=== PATIENT | male | born 1945 | race Caucasian/White ===

== ENCOUNTER → 2023-12-15 | Outpatient (REF) | payer MEDICARE ==
[~2023-12-15] MED LIST: IOPAMIDOL 370 MG/ML 100 ML INFUS..BTL INJ ONE
[2023-12-15 16:30] LABS: CREATININE, SERUM 0.72 mg/dL (0.72-1.25)
== END ==
LOC: CT 15:42
PROVIDERS: ATTEND Internal Medicine
DX: R10.9 Unspecified abdominal pain (principal); K44.9 Diaphragmatic hernia without obstruction or gangrene
CPT/HCPCS: 36415; 74177; 82565; 84520; Q9967

== ENCOUNTER → 2024-01-23 | Outpatient (REF) | payer MEDICARE | LOC: MRI 10:48 | PROVIDERS: ATTEND Internal Medicine | DX: M54.16 Radiculopathy, lumbar region (principal) | CPT/HCPCS: 72148 ==

== ENCOUNTER 2024-02-26 05:19 | Observation (INO) | payer MEDICARE ==
[2024-02-23 15:36] LABS: BASOPHILS # (AUTO) 0.1 (0.0-0.1); BASOPHILS % 1.2 % (0.0-1.0); EOSINOPHILS # (AUTO) 0.1 (0.0-0.4); EOSINOPHILS % 2.2 % (0.0-6.0); HEMATOCRIT 40.6 % (38.2-49.6); HEMOGLOBIN 12.7 g/dL (14.0-18.0); LYMPHOCYTES # (AUTO) 1.2 (1.0-3.2); LYMPHOCYTES % 19.3 % (18.0-39.1); MEAN CORPUSCULAR HEMOGLOBIN 25.6 pg (28-32); MEAN CORPUSCULAR HGB CONC 31.3 g/dL (31-35); MEAN CORPUSCULAR VOLUME 81.9 fL (81-99); MONOCYTES # (AUTO) 0.6 (0.2-0.8); MONOCYTES % 9.2 % (4.4-11.3); NEUTROPHILS # (AUTO) 4.4 (2.1-6.9); NEUTROPHILS % 67.9 % (38.7-80.0); PLATELET COUNT 226 x10e3/uL (140-360); RED BLOOD COUNT 4.96 x10e6/uL (4.3-5.7); RED CELL DISTRIBUTION WIDTH 14.6 % (11.7-14.4); WHITE BLOOD COUNT 6.41 x10e3/uL (4.8-10.8)
[2024-02-23 15:50] LABS: INR 1.01; PROTHROMBIN TIME 13.8 seconds (11.9-14.5)
[2024-02-23 15:55] LABS: ANION GAP 13.5 mmol/L (8-16); CALCIUM 9.8 mg/dL (8.4-10.2); CREATININE, SERUM 0.82 mg/dL (0.72-1.25); POTASSIUM 4.5 mmol/L (3.5-5.1)
[~2024-02-26] VITALS: Ht 175.3 cm; Wt 71.4 kg
[~2024-02-26 05:19] MED LIST changes: +AREDS2 PO; +B COMPLEX1 EACH; +GARLIC1000 MG; -IOPAMIDOL 370 MG/ML 100 ML INFUS..BTL INJ ONE; +LUTEIN6 MG; +MULTI-VITAMIN1 EACH PO; +PANTOPRAZOLE SO40 MG PO; +VITAMIN D350 MCG; +[UNRECOGNIZED DRUG - OTHER]
[2024-02-26] MEDS: CEFAZOLIN SODIUM 2 GM ONE (06:36)
[2024-02-26] MEDS: LACTATED RINGER'S 1,000 ML ONE (06:37)
[2024-02-26] MEDS ORDERED: CEFAZOLIN SODIUM 2 GM ONE (06:47)
[2024-02-26] MEDS ORDERED: THROMBIN FOR SOLN 5,000 UNIT VIAL ONE (07:03)
[2024-02-26] MEDS ORDERED: LIDOCAINE 1% W/EPINEPHRINE 20 ML VIAL ONE (07:03)
[2024-02-26] MEDS ORDERED: Vancomycin IV 1 GM VIAL ONE (07:03)
[2024-02-26] MEDS ORDERED: OXYCODONE/ACETAMINOPHEN 5-325 1 EACH TABLET PO PRN (09:30)
[2024-02-26] MEDS ORDERED: ONDANSETRON HCL INJ 2MG/ML 2ML 2 MG/ML VIAL IV PRN (09:30)
[2024-02-26] MEDS ORDERED: CARISOPRODOL 350 MG TAB PO PRN (09:30)
[2024-02-26] MEDS ORDERED: MAGNESIUM/ALUMINUM/SIMETHICONE 30 ML UDC PO PRN (09:30)
[2024-02-26] MEDS ORDERED: HYDROMORPHONE 2MG/ML IV PRN (09:30)
[2024-02-26] MEDS ORDERED: ACETAMINOPHEN 325 MG TAB PO PRN (09:30)
[2024-02-26] MEDS ORDERED: MORPHINE SULFATE 5 MG/ML VIAL IM PRN (09:30)
[2024-02-26] MEDS ORDERED: PROMETHAZINE HCL (IM) 25 MG/ML VIAL IM PRN (09:30)
[2024-02-26] MEDS ORDERED: ZOLPIDEM TARTRATE 5 MG TAB PO PRN (09:30)
[2024-02-26] MEDS ORDERED: HYDROCODON-ACE1 EA12 PO (10:01)
[2024-02-26 12:36] VITALS: BP 123/75; PULSE 76; RESP 18; TEMP 98; O2SAT 98
[2024-02-26 14:09] VITALS: BP 123/75; PULSE 76; RESP 17; TEMP 98; O2SAT 98
[2024-02-26 14:10] VITALS: BP 123/75; PULSE 76; RESP 18; TEMP 98; O2SAT 98
[2024-02-26] MEDS ORDERED: FENTANYL CITRATE/PF 100MCG/2 ML INJ ONE (14:18)
[2024-02-26] MEDS: LACTATED RINGER'S 1,000 ML IV SCH (14:27)
[2024-02-26 16:30] VITALS: BP 120/71; PULSE 58; RESP 17; TEMP 97.9; O2SAT 98
[2024-02-26] MEDS ORDERED: DEXAMETHASONE SOD PHOS 10 MG/1 ML VIAL ONE (17:13)
[2024-02-26] MEDS ORDERED: DEXMEDETOMIDINE HCL 200 MCG/2 ML VIAL ONE (17:13)
[2024-02-26] MEDS ORDERED: SUGAMMADEX SODIUM 200 MG/2 ML VIAL IV ONE (17:13)
[2024-02-26] MEDS ORDERED: PROPOFOL IV EMULSION 10 MG/ML 20 ML VIAL ONE (17:13)
[2024-02-26] MEDS ORDERED: SEVOFLURANE INHAL SOLN 250 ML PEN BTL ONE (17:13)
[2024-02-26] MEDS ORDERED: LIDOCAINE HCL 2% LOCAL INJ 5 ML SDV VIAL INJ ONE (17:13)
[2024-02-26] MEDS ORDERED: ONDANSETRON HCL INJ 2MG/ML 2ML 2 MG/ML VIAL ONE (17:13)
[2024-02-26] MEDS ORDERED: KETAMINE 50MG/5ML SYR ONE (17:13)
[2024-02-26] MEDS ORDERED: ACETAMINOPHEN 1000 MG/100 ML IV ONE (17:13)
[2024-02-26] MEDS ORDERED: ROCURONIUM BROMIDE 10 MG/ML 5ML VIAL IV ONE (17:13)
[2024-02-26 20:00] VITALS: BP 144/81; PULSE 85; RESP 20; TEMP 97.6; O2SAT 98
[2024-02-26 23:18] VITALS: BP 144/81; PULSE 85; RESP 20; TEMP 97.6; O2SAT 98
[2024-02-27] VITALS: BP 119/70; PULSE 84; RESP 20; TEMP 97.7; O2SAT 94
[2024-02-27 04:00] VITALS: BP 124/69; PULSE 79; RESP 20; TEMP 97.7; O2SAT 97
[2024-02-27 07:41] VITALS: BP 120/71; PULSE 81; RESP 18; TEMP 98.2; O2SAT 100
[2024-02-27 08:05] VITALS: BP 120/71; PULSE 81; RESP 18; TEMP 98.2; O2SAT 100
[2024-02-27] MEDS: PANTOPRAZOLE SOD 40 MG TABEC PO SCH (08:26)
[2024-02-27] MEDS: MULTIVITAMINS/MINERALS TAB PO SCH (08:26)
[2024-02-27 11:21] VITALS: BP 120/75; PULSE 71; RESP 18; TEMP 98; O2SAT 99
== END 2024-02-27 13:18 | disposition home or self-care (01) ==
LOC: OR 05:19 → PACU V 09:29 → MED/SURG3 11:48
PROVIDERS: ADMIT Neurological Surgery; ATTEND Neurological Surgery
DX: M51.16 Intervertebral disc disorders with radiculopathy, lumbar region (principal); K21.9 Gastro-esophageal reflux disease without esophagitis; K44.9 Diaphragmatic hernia without obstruction or gangrene; Z87.891 Personal history of nicotine dependence; R94.31 Abnormal electrocardiogram [ECG] [EKG]; Z01.810 Encounter for preprocedural cardiovascular examination; Z01.812 Encounter for preprocedural laboratory examination; Z01.818 Encounter for other preprocedural examination; Z79.899 Other long term (current) drug therapy
CPT/HCPCS: 36415; 63056; 63057; 71046; 72020; 80048; 85025; 85610; 85730; 86850; 86870; 86880; 86900; 86905; 88304; 88311; 93005; 99001; G0378 ×2; J0131; J0690 ×2; J1100; J2001; J2405; J2704; J3010; J3370; J7121; S0164